=== PATIENT | male | born 1990 | race Caucasian/White ===

== ENCOUNTER 2017-04-17 15:54 | Emergency (ER) | payer SELFPAY ==
[2017-04-17] MEDS ORDERED: Naproxen 500 MG Tab PO ONE (17:29)
--- NOTE | 2017-04-17 17:34 | EDM.PDOC ---
ED HPI GENERAL MEDICAL PROBLEM - General Chief Complaint: ENT Problem Stated Complaint: TOOTH PAIN Time Seen by Provider: 04/17/17 16:07 Source of Information: Reports: Patient History Limitations: Reports: No Limitations - History of Present Illness INITIAL COMMENTS - FREE TEXT/NARRATIVE: The patient states that he has pain involving all of his teeth, especially the molars, for about 2 months. He states that he saw a dentist this past Tuesday, , and was told that he needs 2 root canals, 2 crowns, his wisdom teeth extracted, and a deep clean. The patient states that he did not ask about pain medications. He states that he is waiting for a date for the wisdom teeth extraction. He now presents stating that he needs pain medication, because oral ibuprofen is not working. He is also concerned that he might have an infection, however, he denies having a recent fever or oral drainage. The patient states that he has been chewing on raw garlic to help with his dental pain. He states that it doesn't work, but it was suggested by a friend of his. The patient does not have a PCP. Oral/Mouth Pain Score (Numeric/FACES): 10 - Related Data Allergies Allergy/AdvReac Type Severity Reaction Status Date / Time No Known Allergies Allergy Verified 04/17/17 16:28 Home Meds: Home Meds Naproxen 500 mg PO Q12H PRN #20 tablet 04/17/17 [Rx] Past Medical History Respiratory History: Reports: Asthma Social & Family History - Tobacco Use Smoking Status *Q: Never Smoker ED ROS ENT - Review of Systems Review Of Systems: ROS reveals no pertinent complaints other than HPI. ED EXAM, ENT - Physical Exam Exam: See Below Exam Limited By: No Limitations General Appearance: Alert, WD/WN, No Apparent Distress Eye Exam: Bilateral Eye: Normal Inspection Ears: Normal External Exam, Normal Canal, Hearing Grossly Normal, Normal TMs Nose: Normal Inspection, No Blood, Other (Bilateral nasal mucosa edema) Mouth/Throat: Normal Gums, Normal Lips, Normal Oropharynx, Other (Teeth #2, 4, 12, 13, 14, 17, 18, 19, 30, and 31 with fillings. Normal-appearing gingiva, with no swelling or pointing.) Head: Atraumatic, Normocephalic Neck: Normal Inspection, Supple, Non-Tender, Full Range of Motion. No: Lymphadenopathy (L), Lymphadenopathy (R) Course - Vital Signs Last Recorded V/S: Last Vital Signs Temp 36.9 C 04/17/17 16:29 Pulse 73 04/17/17 16:29 Resp 18 04/17/17 16:29 BP 150/83 H 04/17/17 16:29 Pulse Ox 99 04/17/17 16:29 - Orders/Labs/Meds Meds: Medications Discontinued Medications Generic Name Dose Route Start Last Admin Trade Name Yariel PRN Reason Stop Dose Admin Naproxen 500 mg 04/17/17 17:29 04/17/17 17:51 Naprosyn PO 04/17/17 17:30 500 mg ONETIME ONE Administration - Re-Assessments/Exams Free Text/Narrative Re-Assessment/Exam: 04/17/17 17:30 The patient states that all of his teeth hurt, primarily the molars. He states that he forgot to ask for pain medication when he saw a dentist this past 04/12/2017, and was looking for some pain medication here today. I will start the patient on prescription strength naproxen, with the advice that if he needs something stronger, then he will need to speak to his dentist. I do not see any sign of infection. Departure - Departure Time of Disposition: 17:31 Disposition: Home, Self-Care 01 Condition: Good Clinical Impression: Dentalgia - Discharge Information Prescriptions: Naproxen 500 mg PO Q12H PRN #20 tablet PRN Reason: Pain Referrals: PCP,None [Primary Care Provider] - Forms: ED Department Discharge Additional Instructions: You were seen in the emergency room for a generalized dental pain, particularly of the molars. On examination, no dental infection was found. You have been started on the prescription pain reliever naproxen. A prescription for this has been called in to the [place] [facility], [address], [place]. Take one tablet every 12 hours, with food, as prescribed. If you require something stronger for your pain, you will need to talk to your dentist. If any other problems, please do not hesitate to return to the ER.
== END 2017-04-17 17:51 | disposition home or self-care (01) ==
LOC: JD.ED 15:54
DX: K08.89 Other specified disorders of teeth and supporting structures (principal)
CPT/HCPCS: 99283; A9270

== ENCOUNTER 2022-07-13 12:31 | Day surgery (SDC) | payer SELFPAY ==
[2022-07-13] MEDS ORDERED: Sodium Chloride 0.9% 10 ML Syringe FLUSH SCH (13:00)
[2022-07-13] MEDS ORDERED: Lidocaine 1%/Sod Bicarbonate in NS 8.4% 1 ML Syringe IDERM PRN (13:00)
[2022-07-13] MEDS ORDERED: Lactated Ringers 1,000 ML IV SCH (13:00)
[2022-07-13] MEDS ORDERED: Lidocaine 1% with EPINEPHrine 1:100,000 20 ML MDV ONE (14:16)
[2022-07-13] MEDS ORDERED: Bupivacaine 0.5%/EPINEPHrine 1:200,000 50 ML MDV ONE (14:16)
[2022-07-13] MEDS ORDERED: fentaNYL 100 MCG/2 ML SDV IVPUSH PRN (14:24)
[2022-07-13] MEDS ORDERED: Ondansetron 4 MG/2 ML SDV IVPUSH PRN (14:24)
[2022-07-13] MEDS ORDERED: HYDROmorphone 0.5 MG/0.5 ML Syringe IVPUSH PRN (14:24)
[2022-07-13] MEDS ORDERED: Ondansetron 4 MG/2 ML SDV ONE (14:27)
[2022-07-13] MEDS ORDERED: Lidocaine 1% 2 ML ONE (14:27)
[2022-07-13] MEDS ORDERED: fentaNYL 100 MCG/2 ML SDV ONE (14:28)
[2022-07-13] MEDS ORDERED: Rocuronium 50 MG/5 ML Vial ONE (14:28)
[2022-07-13] MEDS ORDERED: Propofol 200 MG/20 ML SDV ONE (14:28)
[2022-07-13] MEDS ORDERED: Ketorolac 30 MG/ML SDV ONE (16:00)
[2022-07-13] MEDS ORDERED: HYDROmorphone 0.5 MG/0.5 ML Syringe ONE (16:06)
[2022-07-13] MEDS ORDERED: Sugammadex Sodium 200 MG/2 ML VIAL ONE (16:24)
[2022-07-13] MEDS ORDERED: Promethazine 12.5 MG in Sodium Chloride 0.9% 50 ML IV ONE (17:07)
== END 2022-07-13 18:45 | disposition home or self-care (01) ==
LOC: JD.SDS 12:31
PROVIDERS: ATTEND Surgery
DX: K35.80 Unspecified acute appendicitis (principal); J45.909 Unspecified asthma, uncomplicated; Z91.048 Other nonmedicinal substance allergy status; Z79.899 Other long term (current) drug therapy
CPT/HCPCS: 44970; J1170; J1885; J2405; J2550; J2704; J3010; J3490; J7120; 00840

== ENCOUNTER 2023-10-20 17:30 | Emergency (ER) | payer OTHER ==
[2023-10-20] MEDS: Lidocaine 1% 10 ML MDV INJECT ONE (19:09)
[2023-10-20] MEDS: Diphtheria,Pertussis(Acell),Tetanus Vaccine 0.5 ML Syringe IM ONE (19:09)
[2023-10-20] MEDS: cefTRIAXone 1 GM, Lidocaine 1% 2.1 ML IM ONE (19:38)
[2023-10-20] MEDS: Acetaminophen 325 MG Tab PO ONE (19:47)
== END 2023-10-20 21:07 | disposition home or self-care (01) ==
LOC: JD.ED 17:30
DX: S62.626B Displaced fracture of middle phalanx of right little finger, initial encounter for open fracture (principal); F17.210 Nicotine dependence, cigarettes, uncomplicated; Z91.048 Other nonmedicinal substance allergy status; Z23 Encounter for immunization; W22.8XXA Striking against or struck by other objects, initial encounter
CPT/HCPCS: 12002; 73140; 90471; 90715; 96372; 99283; A9270; J0696; J3490